=== PATIENT | male | born 1970 | race Caucasian/White ===

== ENCOUNTER 2019-05-14 10:56 | Emergency (ER) | payer SELFPAY ==
[~2019-05-14] VITALS: Ht 194.3 cm; Wt 105.0 kg
[~2019-05-14 10:56] MED LIST: ELAVIL50 MG PO; FLEXERIL10 MG PO; LISINOP/HCTZ1 TA2 PO; METFORMIN1000 MG PO; NEURONTIN300 MG PO; NEURONTIN600 MG PO; OXYCONTIN10 MG; PERCOCET1 TA4
[2019-05-14] MEDS ORDERED: MEDDOSEPAK PO (11:36)
[2019-05-14] MEDS ORDERED: BACTROBAN TOP (11:36)
[2019-05-14] MEDS ORDERED: PEPCID20 MG PO (11:36)
[2019-05-14 11:45] VITALS: BP 165/85
== END 2019-05-14 11:45 | disposition home or self-care (01) | DRG 918 ==
LOC: ED 10:56
DX: T63.481A Toxic effect of venom of other arthropod, accidental (unintentional), initial encounter (principal); I10 Essential (primary) hypertension

== ENCOUNTER 2021-04-11 21:25 | Emergency (ER) | payer BC ==
[~2021-04-11] VITALS: Ht 193 cm; Wt 125.0 kg
[~2021-04-11 21:25] MED LIST changes: +BACTROBAN TOP; +MEDDOSEPAK PO; +PEPCID20 MG PO
[2021-04-11 22:22] LABS: IMMATURE GRANULOCYTES 0.7 % (0.0-5.0); MEAN CELL VOLUME 89.2 fL CALC (80.0-100.0); MEAN CORPUSCULAR HGB 29.6 pG CALC (26.0-32.0); MEAN CORPUSCULAR HGB CONC 33.1 g/dL CAL (32.0-36.0); NEUT# 9.82 thou/uL (1.82-7.42); RED BLOOD COUNT 5.85 mill/uL (4.70-6.10); RED CELL DISTRI WIDTH 12.7 % (11.5-15.5)
[2021-04-11 22:23] LABS: URINE BILIRUBIN - DIPSTICK NEGATIVE (NEGATIVE); URINE BLOOD DIPSTICK LARGE (NEGATIVE); URINE COLOR YELLOW; URINE GLUCOSE - DIPSTICK NEGATIVE (NEGATIVE); URINE KETONE NEGATIVE (NEGATIVE); URINE LEUK ESTERASE NEGATIVE (NEGATIVE); URINE PROTEIN - DIPSTICK 30 mg/dL (NEG-TRACE); URINE SPECIFIC GRAVITY 1.025
[2021-04-11 22:24] LABS: URINE NITRITE - DIPSTICK NEGATIVE (Negative)
[2021-04-11 22:27] LABS: HEMATOCRIT 52.2 % (39.0-50.0); HEMOGLOBIN 17.3 g/dl (14.0-18.0)
[2021-04-11 22:32] LABS: URINE RBC 50-100 RBC/hpf (0-5)
[2021-04-11 22:35] LABS: ALBUMIN 4.3 g/dL (3.2-5.0); ALKALINE PHOSPHATASE 88 u/l (38-126); AMYLASE 72 u/l (30-110); ANION GAP 12 (6-22 (CALC)); BILIRUBIN, TOTAL 0.7 mg/dL (0.0-1.4); BUN 11 mg/dL (9-20); BUN/CREATININE RATIO 12 (12-20 (CALC)); CARBON DIOXIDE 24 mmol/l (22-30); CHLORIDE 103 mmol/l (95-108); GFR > 60 ML/MIN (>=60 (CALC)); GFR FOR AFR.AMER. > 60 ML/MIN (>=60 (CALC)); LIPASE 38 u/l (23-300); POTASSIUM 4.2 mmol/l (3.5-5.1); SGOT/AST 22 u/l (17-59); SODIUM 135 mmol/l (137-146); TOTAL PROTEIN 7.6 g/dL (6.3-8.2)
[2021-04-11] MEDS ORDERED: LISINOPRIL40 MG PO (22:52)
[2021-04-11] MEDS ORDERED: ISOSORB MONO30 MG PO (22:53)
[2021-04-11] MEDS ORDERED: LIPITOR40 M1 PO (22:54)
[2021-04-11] MEDS ORDERED: BRILINTA90 MG PO (22:56)
[2021-04-12 01:30] VITALS: BP 190/85
[2021-04-12] MEDS ORDERED: VOLTAREN75 MG PO (01:30)
[2021-04-12] MEDS ORDERED: TAMSULOSIN0.4 MG PO (01:30)
[2021-04-12] MEDS ORDERED: LORTAB 1010 MG PO (01:30)
== END 2021-04-12 01:54 | disposition home or self-care (01) | DRG 694 ==
LOC: ED 21:25
PROVIDERS: Family Medicine
DX: N13.2 Hydronephrosis with renal and ureteral calculous obstruction (principal); I10 Essential (primary) hypertension
CPT/HCPCS: Q9967

== ENCOUNTER 2021-06-23 18:36 | Emergency (ER) | payer BC ==
[~2021-06-23] VITALS: Ht 193 cm; Wt 122.0 kg
[~2021-06-23 18:36] MED LIST changes: +BRILINTA90 MG PO; +ISOSORB MONO30 MG PO; +LIPITOR40 M1 PO; +LISINOPRIL40 MG PO; +LORTAB 1010 MG PO; +TAMSULOSIN0.4 MG PO; +VOLTAREN75 MG PO
[2021-06-23 19:22] LABS: HEMATOCRIT 46.8 % (39.0-50.0); HEMOGLOBIN 15.4 g/dl (14.0-18.0); IMMATURE GRANULOCYTES 0.2 % (0.0-5.0); MEAN CELL VOLUME 92.1 fL CALC (80.0-100.0); MEAN CORPUSCULAR HGB 30.3 pG CALC (26.0-32.0); MEAN CORPUSCULAR HGB CONC 32.9 g/dL CAL (32.0-36.0); NEUT# 6.98 thou/uL (1.82-7.42); RED BLOOD COUNT 5.08 mill/uL (4.70-6.10); RED CELL DISTRI WIDTH 12.7 % (11.5-15.5)
[2021-06-23 19:29] LABS: ANION GAP 10 (6-22 (CALC)); BUN 10 mg/dL (9-20); BUN/CREATININE RATIO 11 (12-20 (CALC)); CARBON DIOXIDE 25 mmol/l (22-30); CHLORIDE 106 mmol/l (95-108); CREATININE 0.9 mg/dL (0.7-1.3); GFR > 60 ML/MIN (>=60 (CALC)); GFR FOR AFR.AMER. > 60 ML/MIN (>=60 (CALC)); POTASSIUM 4.1 mmol/l (3.5-5.1); SODIUM 138 mmol/l (137-146)
[2021-06-23 20:31] VITALS: BP 202/100
== END 2021-06-23 20:30 | disposition home or self-care (01) | DRG 203 ==
LOC: ED 18:36
PROVIDERS: Family Medicine
DX: J20.8 Acute bronchitis due to other specified organisms (principal); I10 Essential (primary) hypertension; F17.200 Nicotine dependence, unspecified, uncomplicated; Z98.84 Bariatric surgery status; Z87.442 Personal history of urinary calculi; Z20.822 Contact with and (suspected) exposure to COVID-19

== ENCOUNTER 2021-06-30 10:58 | Emergency (ER) | payer BC ==
[~2021-06-30] VITALS: Ht 193 cm; Wt 125.0 kg
[2021-06-30] MEDS ORDERED: KEFLEX500 MG PO (11:57)
[2021-06-30 12:18] VITALS: BP 186/97
[2021-06-30] MEDS ORDERED: AMOXICILLIN875 MG PO (12:25)
== END 2021-06-30 12:18 | disposition home or self-care (01) | DRG 605 ==
LOC: ED 10:58
PROC: 0HQKXZZ Repair Right Lower Leg Skin, External Approach (ICD-10-PCS; principal; 2021-06-30)
DX: S81.811A Laceration without foreign body, right lower leg, initial encounter (principal); I10 Essential (primary) hypertension; E11.9 Type 2 diabetes mellitus without complications; W20.8XXA Other cause of strike by thrown, projected or falling object, initial encounter; Y93.89 Activity, other specified; Y92.009 Unspecified place in unspecified non-institutional (private) residence as the place of occurrence of the external cause; Z86.73 Personal history of transient ischemic attack (TIA), and cerebral infarction without residual deficits

== ENCOUNTER 2021-09-30 16:30 | Emergency (ER) | payer OTHER ==
[~2021-09-30] VITALS: Ht 193 cm; Wt 122.8 kg
[~2021-09-30 16:30] MED LIST changes: +AMOXICILLIN875 MG PO; +KEFLEX500 MG PO
[2021-09-30 16:58] LABS: HEMATOCRIT 51.9 % (39.0-50.0); IMMATURE GRANULOCYTES 0.1 % (0.0-5.0); MEAN CELL VOLUME 91.1 fL CALC (80.0-100.0); MEAN CORPUSCULAR HGB 29.8 pG CALC (26.0-32.0); MEAN CORPUSCULAR HGB CONC 32.8 g/dL CAL (32.0-36.0); NEUT# 7.57 thou/uL (1.82-7.42); RED BLOOD COUNT 5.7 mill/uL (4.70-6.10); RED CELL DISTRI WIDTH 12.9 % (11.5-15.5)
[2021-09-30 17:14] LABS: ALBUMIN 4.2 g/dL (3.2-5.0); ALKALINE PHOSPHATASE 80 u/l (38-126); ANION GAP 12 (6-22 (CALC)); BILIRUBIN, TOTAL 0.6 mg/dL (0.0-1.4); BUN 14 mg/dL (9-20); BUN/CREATININE RATIO 12 (12-20 (CALC)); CARBON DIOXIDE 24 mmol/l (22-30); CHLORIDE 108 mmol/l (95-108); CREATININE 1.2 mg/dL (0.7-1.3); GFR > 60 ML/MIN (>=60 (CALC)); GFR FOR AFR.AMER. > 60 ML/MIN (>=60 (CALC)); POTASSIUM 3.9 mmol/l (3.5-5.1); SGOT/AST 21 u/l (17-59); SODIUM 140 mmol/l (137-146); TOTAL PROTEIN 7.7 g/dL (6.3-8.2)
[2021-09-30 17:16] LABS: ACT PARTIAL THROMBO TIME 23.2 SECONDS (20.0-32.5); INTERNATIONAL NORMALIZED RATIO 1.1 RATIO (0.7-1.3); PROTHROMBIN TIME 11.1 SECONDS (9.0-12.5)
[2021-09-30 18:01] VITALS: BP 164/89
== END 2021-09-30 17:58 | disposition short-term general hospital (02) | DRG 311 ==
LOC: ED 16:30
PROVIDERS: Family Medicine
DX: I20.0 Unstable angina (principal); I10 Essential (primary) hypertension; E11.9 Type 2 diabetes mellitus without complications; E66.9 Obesity, unspecified; F17.210 Nicotine dependence, cigarettes, uncomplicated; Z86.73 Personal history of transient ischemic attack (TIA), and cerebral infarction without residual deficits; Z20.822 Contact with and (suspected) exposure to COVID-19
CPT/HCPCS: J1644

== ENCOUNTER 2021-10-08 12:14 | Emergency (ER) | payer OTHER ==
[~2021-10-08] VITALS: Ht 193 cm; Wt 128.0 kg
[2021-10-08 12:59] LABS: HEMATOCRIT 50.7 % (39.0-50.0); HEMOGLOBIN 16.5 g/dl (14.0-18.0); IMMATURE GRANULOCYTES 0.2 % (0.0-5.0); MEAN CORPUSCULAR HGB 29.6 pG CALC (26.0-32.0); MEAN CORPUSCULAR HGB CONC 32.5 g/dL CAL (32.0-36.0); NEUT# 5.32 thou/uL (1.82-7.42); RED BLOOD COUNT 5.57 mill/uL (4.70-6.10)
[2021-10-08 13:18] LABS: ALBUMIN 4.4 g/dL (3.2-5.0); ALKALINE PHOSPHATASE 92 u/l (38-126); AMYLASE 119 u/l (30-110); ANION GAP 11 (6-22 (CALC)); BILIRUBIN, TOTAL 0.6 mg/dL (0.0-1.4); BUN 11 mg/dL (9-20); BUN/CREATININE RATIO 13 (12-20 (CALC)); CARBON DIOXIDE 27 mmol/l (22-30); CHLORIDE 104 mmol/l (95-108); CREATININE 0.9 mg/dL (0.7-1.3); GFR > 60 ML/MIN (>=60 (CALC)); GFR FOR AFR.AMER. > 60 ML/MIN (>=60 (CALC)); LIPASE 90 u/l (23-300); SGOT/AST 18 u/l (17-59); SODIUM 138 mmol/l (137-146); TOTAL PROTEIN 7.9 g/dL (6.3-8.2)
[2021-10-08 13:29] LABS: MYOGLOBIN 28 ng/mL (0 - 121)
[2021-10-08 14:11] LABS: URINE BILIRUBIN - DIPSTICK NEGATIVE (NEGATIVE); URINE BLOOD DIPSTICK NEGATIVE (NEGATIVE); URINE COLOR YELLOW; URINE GLUCOSE - DIPSTICK NEGATIVE (NEGATIVE); URINE KETONE NEGATIVE (NEGATIVE); URINE LEUK ESTERASE NEGATIVE (NEGATIVE); URINE PH 5.5 (4.5-8.0); URINE PROTEIN - DIPSTICK NEGATIVE (NEG-TRACE); URINE SPECIFIC GRAVITY >=1.030
[2021-10-08 14:12] LABS: URINE NITRITE - DIPSTICK NEGATIVE (Negative)
[2021-10-08 17:12] VITALS: BP 184/106
== END 2021-10-08 17:08 | disposition short-term general hospital (02) | DRG 311 ==
LOC: ED 12:14
PROVIDERS: Family Medicine
DX: I20.0 Unstable angina (principal); I10 Essential (primary) hypertension; E66.9 Obesity, unspecified; E11.9 Type 2 diabetes mellitus without complications; F17.200 Nicotine dependence, unspecified, uncomplicated; Z86.73 Personal history of transient ischemic attack (TIA), and cerebral infarction without residual deficits
CPT/HCPCS: J1644

== ENCOUNTER 2022-01-30 18:59 | Observation (INO) | payer OTHER ==
[2022-01-30] VITALS (14 sets, daily range): BP systolic 115–154; BP diastolic 71–93
[~2022-01-30] VITALS: Ht 193 cm; Wt 115.0 kg
--- NOTE | 2022-01-30 19:00 | NUR ---
PT TO ROOM 13 VIA WC.
[2022-01-30] MEDS ORDERED: NORVASC5 M1 PO (19:17)
[2022-01-30] MEDS ORDERED: ASPIRIN81 MG PO (19:17)
[2022-01-30 19:37] LABS: HEMOGLOBIN 15.6 g/dl (14.0-18.0); IMMATURE GRANULOCYTES 0.1 % (0.0-5.0); MEAN CELL VOLUME 92.5 fL CALC (80.0-100.0); MEAN CORPUSCULAR HGB 30.1 pG CALC (26.0-32.0); MEAN CORPUSCULAR HGB CONC 32.5 g/dL CAL (32.0-36.0); NEUT# 6.61 thou/uL (1.82-7.42); RED BLOOD COUNT 5.19 mill/uL (4.70-6.10); RED CELL DISTRI WIDTH 13.4 % (11.5-15.5)
[2022-01-30 19:49] LABS: D-DIMER 0.3 mg/L (0.19-0.60)
[2022-01-30 19:51] LABS: ALKALINE PHOSPHATASE 83 u/l (38-126); AMYLASE 79 u/l (30-110); ANION GAP 13 (6-22 (CALC)); BILIRUBIN, TOTAL 0.5 mg/dL (0.0-1.4); BUN 13 mg/dL (9-20); BUN/CREATININE RATIO 15 (12-20 (CALC)); CARBON DIOXIDE 25 mmol/l (22-30); CHLORIDE 105 mmol/l (95-108); CREATININE 0.9 mg/dL (0.7-1.3); GFR > 60 ML/MIN (>=60 (CALC)); GFR FOR AFR.AMER. > 60 ML/MIN (>=60 (CALC)); LIPASE 36 u/l (23-300); POTASSIUM 4.1 mmol/l (3.5-5.1); SGOT/AST 21 u/l (17-59); SODIUM 139 mmol/l (137-146)
[2022-01-30 19:53] LABS: INTERNATIONAL NORMALIZED RATIO 1.1 RATIO (0.7-1.3)
[2022-01-30 20:02] LABS: MYOGLOBIN 50 ng/mL (0 - 121)
--- NOTE | 2022-01-30 20:40 | NUR ---
SR NO CP COMP NO ST T CHANGES WATER PO PROVIDED AT PT REQUEST
--- NOTE | 2022-01-30 21:19 | NUR ---
W/D SKIN SR NO ST T CHANGES NO ECTOPY
--- NOTE | 2022-01-30 22:10 | NUR ---
PHONE REPORT TO NURSE ZACK JOYNER
--- NOTE | 2022-01-30 22:15 | NUR ---
PT TRANSPORTED TO [place] RM 275 VIA TELE IN STABLE CONDITION
--- NOTE | 2022-01-31 | NUR ---
PT IN BED ASLEEP, BED IN LOW POSITION, CALL LIGHT IN REACH
[2022-01-31 00:26] VITALS: BP 138/73
[2022-01-31 04:25] VITALS: BP 140/78
--- NOTE | 2022-01-31 05:05 | NUR ---
pt in bed asleep, no distress noted, bed in low positin, call light in reach
--- NOTE | 2022-01-31 07:00 | NUR ---
RECEIVE REPORT FROM EDGARD JOYNER.
[2022-01-31 08:00] VITALS: BP 126/69
--- NOTE | 2022-01-31 08:00 | NUR ---
PATIENT AWAKE/ALERT, LYING IN BED. C/O OF CHEST PAIN 10/10, PHYSICIAN CALLED, ORDER PLACED FOR DILAUDID. VITALS WDL, LUNGS CLEAR, ALL QUESTIONS ASKED AND ANSWERED.
[2022-01-31] MEDS ORDERED: TRAMADOL HCL50 MG PO (10:40)
[2022-01-31 11:09] VITALS: BP 130/76
--- NOTE | 2022-01-31 12:10 | NUR ---
A/O, NO C/O PAIN,STABLE
== END 2022-01-31 12:30 | disposition home or self-care (01) | DRG 313 ==
LOC: ED 18:59 → ED-I 20:00 → ED 20:15 → MS2 20:16
PROVIDERS: Family Medicine; ADMIT Internal Medicine; ATTEND Internal Medicine
DX: R07.89 Other chest pain (principal); I10 Essential (primary) hypertension; I25.10 Atherosclerotic heart disease of native coronary artery without angina pectoris; E11.9 Type 2 diabetes mellitus without complications; F17.210 Nicotine dependence, cigarettes, uncomplicated; Z86.73 Personal history of transient ischemic attack (TIA), and cerebral infarction without residual deficits; Z98.84 Bariatric surgery status; Z63.5 Disruption of family by separation and divorce; Z91.14 Patient's other noncompliance with medication regimen; Z20.822 Contact with and (suspected) exposure to COVID-19
CPT/HCPCS: G0378; J1650

== ENCOUNTER 2022-04-16 16:45 | Observation (INO) | payer OTHER ==
[~2022-04-16] VITALS: Ht 193 cm; Wt 122.7 kg
[2022-04-16] VITALS (11 sets, daily range): BP systolic 151–169; BP diastolic 77–117
[~2022-04-16 16:45] MED LIST changes: +BAYER ASPIRIN E81 MG PO; +NORVASC5 M1 PO; +TRAMADOL HCL50 MG PO
--- NOTE | 2022-04-16 17:35 | NUR ---
Reassessment of patient completed. No distress noted.
[2022-04-16 17:39] LABS: HEMATOCRIT 51.1 % (39.0-50.0); HEMOGLOBIN 16.8 g/dl (14.0-18.0); IMMATURE GRANULOCYTES 0.2 % (0.0-5.0); MEAN CELL VOLUME 91.9 fL CALC (80.0-100.0); MEAN CORPUSCULAR HGB 30.2 pG CALC (26.0-32.0); MEAN CORPUSCULAR HGB CONC 32.9 g/dL CAL (32.0-36.0); NEUT# 6.03 thou/uL (1.82-7.42); RED BLOOD COUNT 5.56 mill/uL (4.70-6.10); RED CELL DISTRI WIDTH 12.7 % (11.5-15.5)
[2022-04-16 18:02] LABS: ALBUMIN 4.5 g/dL (3.2-5.0); ALKALINE PHOSPHATASE 95 u/l (38-126); ANION GAP 13 (6-22 (CALC)); BILIRUBIN, TOTAL 0.5 mg/dL (0.0-1.4); BUN 12 mg/dL (9-20); BUN/CREATININE RATIO 12 (12-20 (CALC)); CARBON DIOXIDE 26 mmol/l (22-30); CHLORIDE 104 mmol/l (95-108); GFR FOR AFR.AMER. > 60 ML/MIN (>=60 (CALC)); GFR OTHER RACES > 60 ML/MIN (>=60 (CALC)); POTASSIUM 4.4 mmol/l (3.5-5.1); SGOT/AST 19 u/l (17-59); SODIUM 139 mmol/l (137-146); TOTAL PROTEIN 7.8 g/dL (6.3-8.2)
[2022-04-16 18:03] LABS: INTERNATIONAL NORMALIZED RATIO 1.1 RATIO (0.7-1.3); PROTHROMBIN TIME 11.3 SECONDS (9.0-12.5)
--- NOTE | 2022-04-16 18:35 | NUR ---
Reassessment of patient completed. No distress noted.
--- NOTE | 2022-04-16 19:32 | NUR ---
Reassessment of patient completed. No distress noted. PATIENT TO BE ADMITTED TO HOSPITAL. DENIES PAIN, DISCOMFORT, DZZINESS, OR WEAKNESS. PATIENT AWARE AND AGREEABLE WITH PLAN OF CARE. BP 154/92 DR. YE NOTIFIED. NO NEW ORDERS RECEIVED AT THIS TIME. CALL LIGHT IN REACH. WILL CONTINUE WITH PLAN OF CARE.
--- NOTE | 2022-04-16 21:35 | NUR ---
PATIENT ADMITTED FROM ER VIA WHEELCHAIR WITH ER STAFF IN ATTENDANCE. ABLE TO TRANSFER TO THE BED. AMBULATORY-STEADY GAIT. ADMITTING DX-CVA. PATIENT STATES THAT HE WAS AT WORK TODY WHEN HE DEVELOPED BLURRED VISION, WEAKNESS, DIZZINESS AND NAUSA AND VOMITTING. WAS BROUGHT TO THE ER AT THAT TIME. H/O CVA,HTN IN THE PAST. PATIENT ALERT AND ORIENTEDX3 AND STATES THAT ALL OF THOSE SX ARE RESOLVED. VISION IS CLEAR, DENIES ANY DIZZINESS OR BLURRED AT THIS TIME. HAND GRASP ARE EQUAL. CYNDI IS WNL. SPEECH IS CLEAR. NO FACIAL DROOP. NIH IS 0. TELE MONITOR IN PLACE-INITIAL READING IS SR-73 IVCD. SALINE LOCK TO RAC INTACT AND HEALTHY WITH GOOD BLOOD RETURN. LUNGS ARE CLEAR. ABD IS SOFT WITH ACTIVE BS-LAST BM WAS TODAY. DENIES ANY DIFFICULTY WITH URINATION. NO PERIHERAL EDEMA NOTED. ORIENTED PATIENT TO ROOM AND SURROUNDINGS. INSTRUCTED ON USE OF NURSE CALL LIGHT SYSTEM. PROVIDE WITH TURKEY WRAP AND DRINK. INSTRUCTED THAT WE DO NEED URINE SPEC WHEN HE IS ABLE TO PROVIDE. SAFETY PRECAUTIONS REINFORCED. CALL LIGHT IN REACH. WILL CONT TO MONITOR.
[2022-04-16 23:59] LABS: URINE BILIRUBIN - DIPSTICK NEGATIVE (NEGATIVE); URINE BLOOD DIPSTICK NEGATIVE (NEGATIVE); URINE COLOR YELLOW; URINE GLUCOSE - DIPSTICK NEGATIVE (NEGATIVE); URINE KETONE NEGATIVE (NEGATIVE); URINE LEUK ESTERASE NEGATIVE (NEGATIVE); URINE NITRITE - DIPSTICK NEGATIVE (Negative); URINE PROTEIN - DIPSTICK NEGATIVE (NEG-TRACE)
--- NOTE | 2022-04-17 | NUR ---
RESTING IN BED-VOIDING QS TESS URINE. URINE SPEC OBTAINED AND SENT TO LAB. TELE MONTIOR IN PLACE. NO COMPLAINTS AT THIS TIME. CALL LIGHT IN REACH. WILL CONT TO MONITOR.
--- NOTE | 2022-04-17 00:43 | NUR ---
PATIENT POSITIONED ON LEFT SIDE. EYES ARE CLOSED AND RESPS ARE EVEN AND UNLABORED. TELE MONITOR IN PLACE. SALINE LOCK TO RAC INTACT. CALL LIGHT IN REACH. WILL CONT TO MONITOR.
--- NOTE | 2022-04-17 04:00 | NUR ---
PATIENT RESTING IN BED-APPEARS SLEEPING WITH EYES CLOSED AND RESPS EVEN AND UNLABORED. TELE MONITOR IN PLACE. SALINE LOCK TO RAC INTACT. CALL LIGHT IN REACH. WILL CONT TO MONITOR.
[2022-04-17 04:04] VITALS: BP 158/79
[2022-04-17 07:08] VITALS: BP 140/80
[2022-04-17 07:08] LABS: CHOLESTEROL HDL RATIO 5.4 (<4.4 (CALC))
--- NOTE | 2022-04-17 09:15 | NUR ---
PT CONSENTED TO RECEIVE PNEUMONIA VAX. PT RECEIVED PNEUMOVAX IN 2020, NONE INDICATED TIL > 63YO
[2022-04-17 11:16] VITALS: BP 161/86
[2022-04-17] MEDS ORDERED: NITROGLYCERIN0.4 MG SL (11:21)
--- NOTE | 2022-04-17 12:00 | NUR ---
RESTING QUIETLY IN ROOM, NO SIGNS OR SYMPTOMS OF DISTRESS NOTED OR VOICED.
--- NOTE | 2022-04-17 13:55 | NUR ---
PATIENT DECLINING TO HAVE ECHO DONE.
--- NOTE | 2022-04-17 16:18 | NUR ---
PATIENT DISCHARGING HOME IN STABLE CONDITION, MEDICATIONS AND INSTRUCTIONS GONE OVER AND IUNDERSTANDING VERBALIZED, IV REMOVED.
[2022-04-17 16:32] VITALS: BP 182/114
== END 2022-04-17 16:20 | disposition home or self-care (01) | DRG 149 ==
LOC: ED 16:45 → ED-I 18:58 → ED 19:08 → MS2 19:09
PROVIDERS: Nurse Practitioner; ADMIT Internal Medicine; ATTEND Internal Medicine
DX: R42 Dizziness and giddiness (principal); H53.8 Other visual disturbances; I10 Essential (primary) hypertension; E66.9 Obesity, unspecified; E78.00 Pure hypercholesterolemia, unspecified; F17.210 Nicotine dependence, cigarettes, uncomplicated; Z86.73 Personal history of transient ischemic attack (TIA), and cerebral infarction without residual deficits; Z98.84 Bariatric surgery status; Z79.82 Long term (current) use of aspirin; Z20.822 Contact with and (suspected) exposure to COVID-19
CPT/HCPCS: G0378; Q3014; Q9967

== ENCOUNTER 2022-10-13 20:19 | Observation (INO) | payer OTHER ==
[~2022-10-13] VITALS: Ht 193 cm; Wt 124.0 kg
[2022-10-13] VITALS (11 sets, daily range): BP systolic 146–177; BP diastolic 81–106
[~2022-10-13 20:19] MED LIST changes: +NITROGLYCERIN0.4 MG SL
[2022-10-13 21:11] LABS: BASO% 0.8 % (0-3); EOS% 4.3 % (0-8); HEMATOCRIT 48.4 % (39.0-50.0); HEMOGLOBIN 15.8 g/dl (14.0-18.0); IMMATURE GRANULOCYTES 0.2 % (0.0-5.0); LYMPH% 26.3 % (15-41); MEAN CELL VOLUME 91.8 fL CALC (80.0-100.0); MEAN CORPUSCULAR HGB CONC 32.6 g/dL CAL (32.0-36.0); MONO% 9.4 % (2-13); NEUT# 5.56 thou/uL (1.82-7.42); RED BLOOD COUNT 5.27 mill/uL (4.70-6.10); RED CELL DISTRI WIDTH 12.8 % (11.5-15.5)
[2022-10-13 21:21] LABS: ALBUMIN 4.1 g/dL (3.2-5.0); ALKALINE PHOSPHATASE 93 u/l (38-126); ANION GAP 11 (6-22 (CALC)); BILIRUBIN, TOTAL 0.3 mg/dL (0.0-1.4); BUN 11 mg/dL (9-20); BUN/CREATININE RATIO 11 (12-20 (CALC)); CARBON DIOXIDE 25 mmol/l (22-30); CHLORIDE 107 mmol/l (95-108); D-DIMER 0.21 mg/L (0.19-0.60); GFR FOR AFR.AMER. > 60 ML/MIN (>=60 (CALC)); GFR OTHER RACES > 60 ML/MIN (>=60 (CALC)); LIPASE 59 u/l (23-300); POTASSIUM 3.6 mmol/l (3.5-5.1); SGOT/AST 19 u/l (17-59); SODIUM 139 mmol/l (137-146)
[2022-10-13 21:25] LABS: ACT PARTIAL THROMBO TIME 24.4 SECONDS (20.0-32.5); PROTHROMBIN TIME 10.4 SECONDS (9.0-12.5)
[2022-10-14 00:10] VITALS: BP 148/81
[2022-10-14 01:24] VITALS: BP 157/80
[2022-10-14 03:55] VITALS: BP 135/55
[2022-10-14 06:17] LABS: BASO% 0.3 % (0-3); HEMATOCRIT 46.4 % (39.0-50.0); IMMATURE GRANULOCYTES 0.2 % (0.0-5.0); LYMPH% 7.4 % (15-41); MEAN CELL VOLUME 91.3 fL CALC (80.0-100.0); MEAN CORPUSCULAR HGB 31.5 pG CALC (26.0-32.0); MEAN CORPUSCULAR HGB CONC 34.5 g/dL CAL (32.0-36.0); MONO% 0.8 % (2-13); NEUT# 5.94 thou/uL (1.82-7.42); NEUT% 91.3 % (42-76); RED BLOOD COUNT 5.08 mill/uL (4.70-6.10); RED CELL DISTRI WIDTH 12.6 % (11.5-15.5)
[2022-10-14 06:18] VITALS: BP 140/59
[2022-10-14 06:28] LABS: ALBUMIN 3.8 g/dL (3.2-5.0); ALKALINE PHOSPHATASE 82 u/l (38-126); ANION GAP 8 (6-22 (CALC)); BILIRUBIN, TOTAL 0.4 mg/dL (0.0-1.4); BUN 11 mg/dL (9-20); BUN/CREATININE RATIO 14 (12-20 (CALC)); CARBON DIOXIDE 23 mmol/l (22-30); CHLORIDE 110 mmol/l (95-108); CREATININE 0.8 mg/dL (0.7-1.3); GFR FOR AFR.AMER. > 60 ML/MIN (>=60 (CALC)); GFR OTHER RACES > 60 ML/MIN (>=60 (CALC)); POTASSIUM 4.3 mmol/l (3.5-5.1); SGOT/AST 17 u/l (17-59); SODIUM 137 mmol/l (137-146); TOTAL PROTEIN 6.5 g/dL (6.3-8.2)
[2022-10-14 06:36] VITALS: BP 140/59
[2022-10-14] MEDS ORDERED: MOTRIN800 MG PO (09:58)
[2022-10-14 10:33] VITALS: BP 131/66
== END 2022-10-14 14:00 | disposition home or self-care (01) | DRG 313 ==
LOC: ED 20:19 → MS2 21:47
PROVIDERS: Family Medicine; ADMIT Internal Medicine; ATTEND Internal Medicine
DX: R07.9 Chest pain, unspecified (principal); I10 Essential (primary) hypertension; I25.10 Atherosclerotic heart disease of native coronary artery without angina pectoris; E78.00 Pure hypercholesterolemia, unspecified; F17.200 Nicotine dependence, unspecified, uncomplicated; M54.50 Low back pain, unspecified; G89.29 Other chronic pain; Z86.73 Personal history of transient ischemic attack (TIA), and cerebral infarction without residual deficits
CPT/HCPCS: G0378

== ENCOUNTER 2023-07-07 19:42 | Inpatient (IN) | payer OTHER ==
[~2023-07-07] VITALS: Ht 193 cm; Wt 123.6 kg
[~2023-07-07 19:42] MED LIST changes: +MOTRIN800 MG PO
--- NOTE | 2023-07-07 20:20 | NUR ---
PT TO ROOM 14 FOR TRIAGE AT BEDSIDE.
[2023-07-07 20:36] VITALS: BP 165/90
--- NOTE | 2023-07-07 21:30 | NUR ---
PT RESTING IN BED. RESP EVEN AND UNLABORED. NO DISTRESS NOTED. A&O X 3. SKIN W/D/P. REPORTS PAIN 6/10 IN UPPER CHEST. MD NOTIFIED AND AWARE. NO NEW ORDERS. PT ON ACCESS RN AND CALL LIGHT IN REACH.
[2023-07-07 22:04] LABS: EOS% 3.7 % (0-8); HEMATOCRIT 49.3 % (39.0-50.0); HEMOGLOBIN 16.3 g/dl (14.0-18.0); IMMATURE GRANULOCYTES 0.2 % (0.0-5.0); LYMPH% 23.1 % (15-41); MEAN CELL VOLUME 92.8 fL CALC (80.0-100.0); MEAN CORPUSCULAR HGB 30.7 pG CALC (26.0-32.0); MEAN CORPUSCULAR HGB CONC 33.1 g/dL CAL (32.0-36.0); MONO% 6.5 % (2-13); NEUT# 6.52 thou/uL (1.82-7.42); NEUT% 65.5 % (42-76); RED BLOOD COUNT 5.31 mill/uL (4.70-6.10); RED CELL DISTRI WIDTH 12.5 % (11.5-15.5)
[2023-07-07 22:14] LABS: ALBUMIN 3.8 g/dL (3.2-5.0); ALKALINE PHOSPHATASE 81 u/l (38-126); AMYLASE 70 u/l (30-110); ANION GAP 10 (6-22 (CALC)); BILIRUBIN, TOTAL 0.5 mg/dL (0.2-1.3); BUN 12 mg/dL (9-20); BUN/CREATININE RATIO 13 (12-20 (CALC)); CARBON DIOXIDE 26 mmol/l (22-30); CHLORIDE 106 mmol/l (95-108); CREATININE 0.9 mg/dL (0.7-1.3); GFR FOR AFR.AMER. > 60 ML/MIN (>=60 (CALC)); GFR OTHER RACES > 60 ML/MIN (>=60 (CALC)); LIPASE 49 u/l (23-300); POTASSIUM 3.7 mmol/l (3.5-5.1); SGOT/AST 19 u/l (17-59); SODIUM 138 mmol/l (137-146); TOTAL PROTEIN 6.7 g/dL (6.3-8.2)
[2023-07-07 22:22] LABS: D-DIMER 0.5 mg/L (0.19-0.60)
[2023-07-07 22:27] LABS: ACT PARTIAL THROMBO TIME 24.3 SECONDS (20.0-32.5); INTERNATIONAL NORMALIZED RATIO 1.1 RATIO (0.7-1.3); PROTHROMBIN TIME 10.7 SECONDS (9.0-12.5)
--- NOTE | 2023-07-07 22:30 | NUR ---
PT CONTINUES RESTING IN BED WATCHING TV. REMAINS ON MANAGER OF GLOBAL. REPORTS PAIN 7/10 IN UPPER CHEST. WORSE W/ MOVEMENT OF UPPER ARMS. VSS. CALL LIGHT IN REACH.
[2023-07-07 22:32] LABS: URINE BLOOD DIPSTICK Negative (NEGATIVE); URINE GLUCOSE - DIPSTICK Negative (NEGATIVE); URINE KETONE Trace mg/dL (NEGATIVE); URINE LEUK ESTERASE Negative (NEGATIVE); URINE NITRITE - DIPSTICK Negative (Negative); URINE PH 5.5 (4.5-8.0); URINE PROTEIN - DIPSTICK Negative (NEG-TRACE); URINE SPECIFIC GRAVITY 1.025
[2023-07-07 22:33] LABS: URINE COLOR Yellow
--- NOTE | 2023-07-07 23:30 | NUR ---
Reassessment of patient completed. No distress noted.
[2023-07-08] VITALS (36 sets, daily range): BP systolic 128–202; BP diastolic 72–109
--- NOTE | 2023-07-08 00:15 | NUR ---
PT SITTING UP IN BED WATCHING TV. REPORTS PAIN 10/10 IN UPPER CHEST. MD NOTIFIED AND ORDERS OBTAINED.VSS
--- NOTE | 2023-07-08 01:30 | NUR ---
PT RESTING IN BED W/ EYES CLOSED. VSS. ON PLANT CYTOLOGIST
--- NOTE | 2023-07-08 02:30 | NUR ---
PT REPORTS SUDDEN ONSET OF 10/10 CP RETURNED. REPEAT EKG COMPLETED AND MD NOTIFIED. NO NEW ORDERS
--- NOTE | 2023-07-08 02:40 | NUR ---
CALL RECEIVED FROM PATRICIA IN LAB. CRITICAL TROPONIN OF 0.176. NOTIFIED ED NURSE Annie CLIFTON RN
--- NOTE | 2023-07-08 03:00 | NUR ---
PT RESTING IN BED WATCHING TV. RESP REMAIN EVEN AND UNLABORED. ON SKIP LOAD DRIVER. REPORTS PAIN 4/10 AFTER MEDICATION.
--- NOTE | 2023-07-08 03:45 | NUR ---
REPORT CALLED TO ANYA BALL
--- NOTE | 2023-07-08 04:00 | NUR ---
PT TRANSPORTED TO [place] VIA STRETCHER. RESP EVEN AND UNLABORED. NO DISTRESS NOTED. VSS.
--- NOTE | 2023-07-08 04:43 | NUR ---
CALL TO A AND P TECHNICIAN. NOTIFIED OF STAT EKG
--- NOTE | 2023-07-08 06:30 | NUR ---
RECIEVED PATIENT TO ROOM 264 VIA WHEELCHAIR WITH ER STAFF IN ATTENDANCE. PATIENT ABLE TO TRANSFER TO THE BED. PATIENT IS AWAKE ALERT AND ORIENTEDX3 WITH C/O STABBING RIGHT SIDED CHEST PAIN WITH TINGLING TO BOTH ARMS. STATES THAT THIS HAS BEEN GOING ON FOR 2 DAYS AND FINALLY GOT SO BAD THAT HE CAME TO THE ER TONIGHT. PATIENT STATES THAT HE DID HAVE CARDIAC CATH DONE APPROX 3 WEEKS AGO AT [facility] AND THAT THE RESULTS THAT HE RECIEVED WAS THAT HE HAD A PROBLEM WITH ONE OF HIS VALVES. WAS STARTED ON NIFEDIPINE 30MG PO TO SEE IF THIS WOULD HELP. TROPS IN THE ER WERE ELEVATED FROM THE FIRST ONE. PATIENT PCP IS SHAN MARQUEZ APRN AND SALVAGE WINDER IS [facility] IN [place]. LUNGS ARE CLEAR. ABD IS SOFT WITH ACTIVE BS. LAST BM WAS YESTERDAY. DENIES ANY DIFFICULTY WITH URINATION. NO PERIPHERAL EDEMA NOTED. PULSES ARE PALPABLE. TELE MONITOR SHOWS SR-61 [id number]-LOVENOX 120 MG SQ GIVEN. PATIENT WITH SEVERE SHARP RIGHT SIDED CHEST PAIN. 0500-DR. LANDA CALLED AND UPDATED WITH PATIENT STATUS-NEW ORDERES RECEIVED. MEDICATED WITH NITRO OINT TO RIGHT SHOULDER AND WITH MORPHINE 2MG IVP VIA RAC IV SITE. SITE IS HEALTHY WITH GOOD BLOOD RETURN. PATIENT PAIN WAS STABBING PER PATIENT TO RIGHT SIDE OF CHEST WITH TINGLING TO ARMS. DR. LANDA PROVIDED WITH LAST EKG TAKEN VIA PHONE. NEW EKG WAS TAKEN ORDERED. PATIENT TO REMAINS NPO PER DR LANDA ORDER. 0545-RECEIVED CALL FROM LAB WITH CRITICAL TROP UP TO 0.[address] LANDA NOTIFIED AND NEW ORDERS RECEIVED. PATIENT TO BE TRANSFERRED TO ICU. JOSÉ JOYNER NSG POLICY INTERN NOTIFIED. PATIENT NOTIFIED OF TRANSFER TO ICU. PATIENT STATES THAT HE HAS HAD SLIGHT RELIEF FROM STABBING PAIN AND IS NOW 7.5-8 ON PAIN SCALE. LAST VS WERE 149/76, HR-69, O2 SAT 96%. 0630-LABETOLOL HELD PER DR. LANDA ORDER. PATIENT TRANSFERRED TO ICU VIA WHEELCHAIR AND BEDSIDE REPORT GIVEN TO JESÚS JOYNER. PATIENT IS NOW IN ICU-8.
--- NOTE | 2023-07-08 06:50 | NUR ---
PT TRANSFERRED TO ICU ORDERED WITH ATTENDING NURSE TRANSPORTING FOR BED SIDE REPORT.
--- NOTE | 2023-07-08 06:50 | NUR ---
PT BROUGHT TO ICU FROM MED-SURG UNIT DUE TO ELEVATED TROPONINS. PT BROUGHT BY WHEELCHAIR AND AMBULATED WITHOUT DIFFICULTY TO RESTROOM AND BED. PT REPORTS CHEST PAIN 8/10 THAT IS STABBING, NON-STOP FOR THE PAST 2 DAYS. PT STATES NOTHING GIVES RELIEF. PT HAD HEART CATH DONE APPROXIMATELY 3 WEEKS AGO AT [facility]. PT STATES HE HAD NO BLOCKAGES, JUST A VALVE PROBLEM. PT IS A/O. LUNGS CLEAR. PT IS ON RA. NO COUGH OR SOB NOTED. HEART RHYTHM REGULAR; PT IS NSR/ SINUS MICHAEL WITH OCCASIONAL PVC'S. BOWEL SOUNDS ACTIVE. PT HAS BEEN KEPT NPO. PULSES STRONG ALL EXTREMETIES. SKIN W/D/I. IV ACCESS 20G RAC. CALL LIGHT IN REACH. VSS.
--- NOTE | 2023-07-08 08:32 | NUR ---
PHONE CALL PLACED TO DR. LANDA TO NOTIFY OF ELEVATED TROPONINS. VERBAL ORDER RECIEVED TO INITIATE TRANSFER PROCESS. CASE MANAGEMENT NOTIFIED. PT MADE AWARE OF PLAN AND IS AGREEABLE.
--- NOTE | 2023-07-08 09:30 | NUR ---
PT REQUESTING PAIN MEDS. ORDERS RECIEVED FROM DR LANDA AND FAXED TO PHARMACY. PT NATHANAEL WORLEY BED, VSS. CALL LIGHT IN REACH.
--- NOTE | 2023-07-08 11:45 | NUR ---
DR. LANDA NOTIFIED THAT PT HAD ANOTHER ELEVATED TROPONIN.
--- NOTE | 2023-07-08 12:00 | NUR ---
PT BACK FROM CT; NOW LYING IN BED WATCHING TV. STILL AWAITING BED ASSIGNMENT FROM [facility]. CALL LIGHT IN REACH. VSS.
--- NOTE | 2023-07-08 12:28 | NUR ---
PT LYING IN BED WATCHING TV. VISITOR AT BEDSIDE.
--- NOTE | 2023-07-08 13:36 | NUR ---
PT REQUESTING PAIN MEDICATIONS. MORPHINE GIVEN EARLY PER DR. LANDA.
--- NOTE | 2023-07-08 13:43 | NUR ---
PT LEFT ICU BY [facility]. PT PACKET GIVEN TO TRANSPORT TEAM. PT IN GOOD CONDITION AND VSS AT TIME OF TRANSFER. ALL BELONGINGS SENT WITH PT.
== END 2023-07-08 13:43 | disposition short-term general hospital (02) | DRG 281 ==
LOC: ED 19:42 → MS2 07-08 00:33 → ICU 07-08 07:21
PROVIDERS: Emergency Medicine; ADMIT Student in an Organized Health Care Education/Training Program; ATTEND Student in an Organized Health Care Education/Training Program
DX: I21.4 Non-ST elevation (NSTEMI) myocardial infarction (principal); I16.1 Hypertensive emergency; I10 Essential (primary) hypertension; I44.7 Left bundle-branch block, unspecified; F17.210 Nicotine dependence, cigarettes, uncomplicated; Z86.73 Personal history of transient ischemic attack (TIA), and cerebral infarction without residual deficits; Z88.8 Allergy status to other drugs, medicaments and biological substances; Z98.84 Bariatric surgery status
CPT/HCPCS: J1650; Q9967

== ENCOUNTER 2024-10-14 22:13 | Emergency (ER) | payer OTHER ==
[~2024-10-14] VITALS: Ht 193 cm; Wt 122.0 kg
[~2024-10-14 22:13] MED LIST changes: +AMOX/K CLAV875 M1 PO; +ELIQUIS5 MG PO; +HYDROCO/APAP1 T10 PO; +LIDOCAINE PAIN RE4 % TD; +NAPROXEN500 MG PO; +ONDANSETRON4 MG PO; +PROCARDIA XL30 MG PO; +TOPROL XL25 M1 PO; +TRAMADOL HYDROC50 M1 PO; +VIBRAMYCIN100 M2 PO
[2024-10-14 22:22] VITALS: BP 186/86
[2024-10-14] MEDS ORDERED: ATORVASTATIN CA40 MG PO (22:25)
[2024-10-14] MEDS ORDERED: ALDACTONE25 MG PO (22:27)
[2024-10-14] MEDS ORDERED: ASPIRIN 81 MG (22:30)
[2024-10-14] MEDS ORDERED: AMLODIPINE BESY10 MG PO (22:30)
[2024-10-14] MEDS ORDERED: HYDROMORPHONE HC2 MG PO (22:31)
[2024-10-14] MEDS ORDERED: DOXYCYC MONO100 M3 PO (22:31)
[2024-10-14] MEDS ORDERED: LEVOFLOXACIN500MG PO (22:32)
[2024-10-14] MEDS ORDERED: LORTAB5 PO (22:32)
[2024-10-14] MEDS ORDERED: FARXIGA5 MG (22:34)
[2024-10-14] MEDS ORDERED: KEPPRA1000 MG PO (22:34)
[2024-10-14] MEDS ORDERED: CARVEDILOL25 MG PO (22:34)
[2024-10-14] MEDS ORDERED: LOSARTAN POTAS100 MG PO (22:35)
[2024-10-14] MEDS ORDERED: HYDROCHLOROT25 MG PO (22:35)
[2024-10-14] MEDS ORDERED: XANAX0.25 MG PO (22:35)
[2024-10-14] MEDS ORDERED: VITAMIN B-1100 M1 PO (22:37)
[2024-10-14] MEDS ORDERED: OXYCODONE5 M1 PO (22:37)
[2024-10-14] MEDS ORDERED: PANTOPRAZOLE SO40 M1 PO (22:37)
[2024-10-14] MEDS ORDERED: ESCITALOPRAM OX20 MG PO (22:38)
[2024-10-14 22:50] LABS: BASO% 0.8 % (0-3); EOS% 4.5 % (0-8); HEMATOCRIT 44.2 % (39.0-50.0); HEMOGLOBIN 14.6 g/dl (14.0-18.0); IMMATURE GRANULOCYTES 0.1 % (0.0-5.0); LYMPH% 25.1 % (15-41); MEAN CELL VOLUME 90.8 fL CALC (80.0-100.0); MONO% 9.3 % (2-13); NEUT# 5.7 thou/uL (1.82-7.42); NEUT% 60.2 % (42-76); RED BLOOD COUNT 4.87 mill/uL (4.70-6.10); RED CELL DISTRI WIDTH 12.9 % (11.5-15.5)
[2024-10-14 23:03] LABS: ALKALINE PHOSPHATASE 90 u/l (38-126); BUN 11 mg/dL (9-20); BUN/CREATININE RATIO 13 (12-20 (CALC)); CARBON DIOXIDE 29 mmol/l (22-30); CREATININE 0.9 mg/dL (0.7-1.3); ESTIMATED GFR 101 ML/MIN (>=90 (CALC)); POTASSIUM 4.6 mmol/l (3.5-5.1); SGOT/AST 19 u/l (17-59); SODIUM 136 mmol/l (137-146); TOTAL PROTEIN 6.8 g/dL (6.3-8.2)
[2024-10-14 23:05] LABS: ANION GAP 8 (6-22 (CALC)); BILIRUBIN, TOTAL 0.5 mg/dL (0.2-1.3); CHLORIDE 104 mmol/l (95-108)
[2024-10-14 23:06] LABS: INTERNATIONAL NORMALIZED RATIO 1.1 RATIO (0.7-1.3)
[2024-10-14 23:10] LABS: PROTHROMBIN TIME 11.6 SECONDS (9.0-12.5)
[2024-10-14] MEDS ORDERED: DICLOFENAC SODIUM 75 MG/TAB PO ONE (23:15)
[2024-10-14] MEDS ORDERED: Acetaminophen 300 MG/Codeine 30 MG/COMBO PO ONE (23:15)
[2024-10-15 00:49] VITALS: BP 184/90
[2024-10-15 00:52] VITALS: BP 180/97
[2024-10-15 00:54] VITALS: BP 179/92
[2024-10-15 01:01] VITALS: BP 178/87
[2024-10-15 01:23] VITALS: BP 178/87
== END 2024-10-15 01:23 | disposition home or self-care (01) | DRG 312 ==
LOC: ED 22:13
PROVIDERS: Family Medicine
DX: R55 Syncope and collapse (principal); I10 Essential (primary) hypertension; I48.91 Unspecified atrial fibrillation; Z86.73 Personal history of transient ischemic attack (TIA), and cerebral infarction without residual deficits; Z87.891 Personal history of nicotine dependence